=== PATIENT | female | born 1990 | race African-American/Black ===

== ENCOUNTER 2018-03-20 10:02 | Emergency (ER) | payer MEDICAID ==
[~2018-03-20] VITALS: Ht 177.8 cm; Wt 74.8 kg
[2018-03-20 10:04] VITALS: BP 138/79
[2018-03-20] MEDS ORDERED: Ketorolac 60mg Inj IM ONE (10:15)
[2018-03-20 10:41] LABS: APPEARANCE,URINE CLEAR; BILIRUBIN, URINE NEGATIVE (NEGATIVE); COLOR,URINE PALE YELLOW; GLUCOSE, URINE (UA) NEGATIVE (NEGATIVE); KETONES,URINE NEGATIVE (NEGATIVE); LEUKOCYTE ESTERASE ,URINE NEGATIVE (NEGATIVE); NITRITE,URINE NEGATIVE (NEGATIVE); PH,URINE 7 (4.5-8.0); PROTEIN,URINE NEGATIVE (NEGATIVE); UROBILINOGEN,URINE NORMAL MG/DL (0.0-1.0)
--- NOTE | 2018-03-20 11:19 | Diagnostic Imaging Report ---
Indication: Neck pain. Technique: Continuous helical imaging of the cervical spine was obtained transaxially from the skull base to the upper thoracic spine. 2-D coronal and sagittal reformatted images were obtained. Automatic Exposure Control was utilized. Total Dose length Product (DLP): [address] Dose Index Volume (CTDIvol): 12.71 mGy Comparison: None Findings: There is no evidence of an acute fracture or malalignment. Atlantoaxial alignment appears normal. Height and configuration of the vertebral bodies and intervertebral discs are within normal limits. Uncovertebral joints and facets are unremarkable. There is no soft tissue swelling. Impression: Negative cervical spine CT The CT scanner at [facility] is accredited by the [employer] and the scans are performed using dose optimization techniques as appropriate to a performed exam including Automatic Exposure control.
[2018-03-20] MEDS ORDERED: NORCO 5-325 TA1 EACH ORAL (13:20)
[2018-03-20] MEDS ORDERED: IBUPROFEN600 MG ORAL (13:20)
[2018-03-20] MEDS ORDERED: Norco 5mg/325mg tab ORAL ONE (13:45)
--- NOTE | 2018-03-20 13:49 | Diagnostic Imaging Report ---
Indication: Back pain Comparison: None Findings: 3 views of the lumbar spine were obtained. No acute fracture or malalignment is identified. Vertebral body heights and disk spaces are well maintained. Posterior elements are unremarkable. An intrauterine device is noted. Impression: No acute findings.
[2018-03-20 14:36] VITALS: BP 78/79
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
== END 2018-03-20 14:36 | disposition home or self-care (01) ==
LOC: EDBD 10:02 → EMR 10:35
DX: S16.1XXA Strain of muscle, fascia and tendon at neck level, initial encounter (principal); V43.52XA Car driver injured in collision with other type car in traffic accident, initial encounter; Y92.410 Unspecified street and highway as the place of occurrence of the external cause; Z88.0 Allergy status to penicillin
CPT/HCPCS: 72020; 72125; 81003; 96372; 99284